=== PATIENT | male | born 1980 | race Caucasian/White ===

== ENCOUNTER → 2021-08-25 | Outpatient (CLI) | payer OTHER, SELFPAY ==
--- NOTE | 2021-08-25 16:02 | CT_ITS ---
STUDY: CT CHEST WITH CONTRAST REASON FOR EXAM: Male, 40 years old. LUNG NODULES RADIATION DOSAGE (If Supplied By Facility): CTDIvol = ( 16.09 ) mGy, DLP = ( 583.72 ) mGycm TECHNIQUE: Transaxial imaging was performed following intravenous administration of IV 75mL Isovue-300. Individualized dose optimization techniques were used for this CT. COMPARISON: None. FINDINGS: LUNGS: There is a 4 mm nodule in the left lower lobe, 3 mm nodule right upper lobe. 3 mm nodular focus in the right middle lobe nodule versus scarring. No consolidation. PLEURA: No pleural effusion. No pneumothorax. MEDIASTINUM: Unremarkable. HEART: Not enlarged. AORTA: Normal caliber. UPPER ABDOMEN: No acute abnormalities. BONES/SOFT TISSUES: No acute abnormalities. OTHER: None. CT/Chest WITH Contrast IMPRESSION: Small bilateral pulmonary nodules, largest is [address] imaging follow-up recommended as detailed below, and comparison to prior studies. *Fleischner Society Recommendations (Radiology 2017, 284:228-243.) (Follow-up and management of multiple nodules smaller than 8 mm detected incidentally at non-screening CT. Newly detected indeterminate nodule in persons 35 years of age or older.) Low risk patient: Minimal or absent history of smoking and of other known risk factors. < 6 mm: No followup needed 6-8mm: Initial Follow-up CT at 3-6 months, then consider CT at 18-24 months >8mm: CT at 3-6 months, then consider CT at 18-24 months High risk patient: History of smoking or of other known risk factors. < 6 mm: Optional CT at 12 months. 6-8mm: CT at 3-6 months, then CT at 18-24 months. >8mm: CT at 3-6 months, then CT at 18-24 months Electronically Signed: Odalis March MD at 7:47 EDT ,
== END | disposition home or self-care (01) ==
LOC: CT 15:55
PROVIDERS: PCP Internal Medicine; Visit Provider Internal Medicine
DX: R91.8 Other nonspecific abnormal finding of lung field (principal); R53.83 Other fatigue
CPT/HCPCS: 71260; Q9967

== ENCOUNTER → 2023-05-11 | Outpatient (CLI) | payer OTHER, SELFPAY ==
--- NOTE | 2023-05-11 12:48 | MRI_ITS ---
STUDY: MRI BRAIN WITH AND WITHOUT CONTRAST REASON FOR EXAM: Male, 42 years old. DOUBLE VISION TECHNIQUE: Standardized multiplanar fat and water weighted pulse sequences were obtained. IV 20ml clariscan was administered for the contrast portion of the examination. COMPARISON: None. FINDINGS: Normal size of the ventricles and extra-axial spaces for the patient''s age. Normal white matter tracts of the supratentorial brain. Normal bilateral basal ganglia. Normal thalami. There is no extra-axial fluid accumulation. Normal flow voids within the major intracranial circulation suggesting patency by spin echo criteria. Normal venous enhancement. There is no enhancing intra-axial or extra-axial abnormality. Normal sella turcica, pituitary gland, infundibular stalk, optic chiasm and hypothalamus. Normal tectal plate and pineal gland. Normal midbrain, liliana and medulla. Normal cerebellum. Normal basal cisterns. Normal bilateral temporal bones. Normal bilateral internal auditory canals. No demonstrated orbital abnormality, within the constraints of a routine brain study. There is minor mucosal thickening of the ethmoid sinuses bilaterally.. Normal calvarium and skull base. Normal visualized soft tissue structures. Normal visualized upper cervical spine. MRI/Brain W/WO Contrast IMPRESSION: Normal unenhanced and enhanced MRI of the brain. Minor bilateral ethmoid sinusitis likely chronic Electronically Signed: Fermin Rodrigues MD at 16:26 EST Reading Location ID and State: [facility] / [place] Tel , Service support ,
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
== END | disposition home or self-care (01) ==
PROVIDERS: PCP Internal Medicine; Referring Provider Internal Medicine; Visit Provider Internal Medicine
DX: H53.2 Diplopia (principal)
CPT/HCPCS: 70030; 70553; A9575